=== PATIENT | female | born 1980 | race Caucasian/White ===

== ENCOUNTER 2016-12-18 23:22 | Emergency (ER) | payer MEDICARE, OTHER ==
[~2016-12-18] VITALS: Ht 165.1 cm; Wt 43.0 kg
[~2016-12-18 23:22] MED LIST: ALPR1 PO; BUPR2SUB SL; CLON.1 PO; CLON1TAB PO; GABA300C3 PO; ONDA4TAB7 PO; RANI150 PO; SERO200T PO; ZOFR4TAB3 SL
[2016-12-18 23:25] VITALS: BP 144/111; PULSE 98; RESP 15; TEMP 98.2; O2SAT 98
--- NOTE | 2016-12-18 23:50 | PD ---
HPI . Left hand injury Chief Complaint: Injury Time Seen by Provider: 23:42 Travel History International Travel<30 days: No Contact w/Intl Traveler<30days: No Traveled to known affect area: No History of Present Illness HPI Patient presents with a left hand injury. She struck a wall. Pain has been constant since that time. She rates it as 9/10. Pain is exacerbated by palpation. PFSH Past Medical History Asthma: Yes Autoimmune Disease: No Blood Disorders: No Bipolar Disorder: Yes Anxiety: Yes Depression: Yes Cancer: No Cardiovascular Problems: No COPD: No Cerebrovascular Accident: No Diabetes: Yes (gestational diabetic diet controlled) Diminished Hearing: No Endocrine: No Gastrointestinal Disorders: Yes Genitourinary: No Headaches: No Immune Disorder: No Musculoskeletal: Yes Neurologic: Yes Psychiatric: Yes (BIPOLAR/PARANOID SCHITZ) Reproductive: Yes () Respiratory: Yes Migraines: No Schizophrenia: Yes (PARANOID) Seizures: Yes (R/T DRUG WITHDRAWAL 2011) ?: Not LMP: LAST MONTH : 3 Para: 2 Miscarriage: 0 : 1 Past Surgical History Abdominal Surgery: No AICD: No Arteriovenous Shunt: No Cardiac Surgery: No Section: Yes (X2) Ear Surgery: No Endocrine Surgery: No Eye Surgery: No Genitourinary Surgery: No Gynecologic Surgery: Yes (CSECTION ) Insulin Pump: No Joint Replacement: No Oral Surgery: No Pacemaker: No Thoracic Surgery: No Other Surgery: Yes Social History Alcohol Use: Yes (long hx beer, liquor, yesterday) Tobacco Use: Yes (2.5 PPD) Substance Use: Yes (BENZOS, METHADONE, ALCOHOL) Allergies-Medications (Allergen,Severity, Reaction): Coded Allergies: Remeron Debora-Tab (Verified Allergy, Unknown, Hallucinations, 12/18/16) Haldol (Verified Adverse Reaction, Severe, TWITCHING/EYES ROLLING, 12/18/16 ) Reglan (Verified Adverse Reaction, Severe, TWITCHING/EYES ROLLING, 12/18/16 ) Risperdal (Verified Adverse Reaction, Severe, CONFUSION, 12/18/16) Reported Meds & Prescriptions Reported Meds & Active Scripts Active Active Prescriptions or Reported Medications Unobtainable Review of Systems ROS Limitations: Intoxication Except as stated in HPI: all other systems reviewed are Neg Musculoskeletal: Positive: Arthralgias Skin: Positive Change in Pigmentation Physical Exam Exam Limitations: Intoxication Narrative GENERAL: Awake and alert. Uncooperative for exam. SKIN: Warm and dry. Bruising between the left 4th and 5th MCP joints. HEAD: Atraumatic. Normocephalic. EYES: Pupils equal and round. NECK: Trachea midline. CARDIOVASCULAR: Regular rate and rhythm. RESPIRATORY: No accessory muscle use. MUSCULOSKELETAL: Tender between the left 4th and 5th MCP joints. NEUROLOGICAL: Awake and alert. No obvious cranial nerve deficits. Motor grossly within normal limits. Normal speech. PSYCHIATRIC: Appropriate mood and affect; insight and judgment normal. Data Data Last Documented VS Vital Signs Date Time Temp Pulse Resp B/P Pulse Ox O2 Delivery O2 Flow Rate FiO2 12/18/16 23:25 98.2 98 15 144/111 98 Room Air Orders Hand, Complete ([id number]) (12/18/16 23:42) [facility] Medical Decision Making Medical Screen Exam Complete: Yes Emergency Medical Condition: Yes Differential Diagnosis Differential diagnosis of extremity trauma includes but is not limited to fracture, sprain or strain, dislocation, contusion Narrative Course Patient presents with a left hand injury after punching a wall. She is intoxicated and making history and physical difficult. X-ray to my interpretation is negative for fracture or dislocation. Diagnosis Primary Impression: Contusion of left hand Qualified Code: S60.222A - Contusion of left hand, initial encounter Med/Other Pt SpecificInfo: Prescription(s) given Scripts Ibuprofen 800 Mg [id number] Mg PO Q8H PRN (Pain/Inflammation) #15 TAB Ref 0 Prov:Natalie Gonzales MD 12/19/16 Disposition: 01 DISCHARGE HOME Condition: Stable Natalie Gonzales MD December 18, 2016 23:50
[2016-12-19] MEDS ORDERED: IBUP800T23 PO (00:25)
--- NOTE | 2016-12-19 00:33 | RADRPT ---
EXAM DATE/TIME: 12/18/2016 23:56 [facility] COMPARISON: No previous studies available for comparison. INDICATIONS : Left hand pain after punching a wall. MEDICAL HISTORY : None. SURGICAL HISTORY : None. ENCOUNTER: Initial ACUITY: 1 day PAIN SCORE: 10/10 LOCATION: Left hand FINDINGS: Three view examination of the left hand demonstrates no acute dislocation or fracture. There soft ti ssue swelling over the dorsum of the hand. The carpal bones appear intact. The interphalangeal and m etacarpophalangeal joints are intact. Bony mineralization is normal. CONCLUSION: Soft tissue swelling with no acute fracture or malalignment. Rohit Pollard MD on December 19, 2016 at 0:32 Board Certified Radiologist. This report was verified electronically.
== END 2016-12-19 00:33 | disposition home or self-care (01) ==
LOC: NEPD 23:22
DX: S60.222A Contusion of left hand, initial encounter (principal); W22.01XA Walked into wall, initial encounter
CPT/HCPCS: 73130; 99283

== ENCOUNTER 2017-03-03 14:41 | Emergency (ER) | payer MEDICARE, OTHER ==
[~2017-03-03 14:41] MED LIST changes: -ALPR1 PO; -BUPR2SUB SL; -CLON.1 PO; -CLON1TAB PO; -GABA300C3 PO; +IBUP800T23 PO; -ONDA4TAB7 PO; -RANI150 PO; -SERO200T PO; -ZOFR4TAB3 SL
[2017-03-03 15:14] VITALS: BP 131/74; PULSE 92; RESP 18; TEMP 98.2; O2SAT 97
--- NOTE | 2017-03-03 15:36 | PD ---
HPI Chief Complaint: Psychiatric Symptoms Time Seen by Provider: 15:31 Travel History International Travel<30 days: No Contact w/Intl Traveler<30days: No Traveled to known affect area: No History of Present Illness HPI 36-year-old female brought in under [place] act by law enforcement. According to the paperwork patient made statements to police worker that she "no longer wanted to live". She does not have a specific plan. Patient reports to drinking heavily today although she can't quantify the amount of alcohol. She denies any illicit drug use. She reports her father recently and since then she's been having a difficult time handling agrees therefore has been drinking heavily. She denies headache, chest pain, abdominal pain, shortness of breath. PFSH Past Medical History Asthma: Yes Autoimmune Disease: No Blood Disorders: No Bipolar Disorder: Yes Anxiety: Yes Depression: Yes Cancer: No Cardiovascular Problems: No COPD: No Cerebrovascular Accident: No Diabetes: Yes (gestational diabetic diet controlled) Diminished Hearing: No Endocrine: No Gastrointestinal Disorders: Yes Genitourinary: No Headaches: No Immune Disorder: No Musculoskeletal: Yes Neurologic: Yes Psychiatric: Yes (BIPOLAR/PARANOID SCHITZ) Reproductive: Yes () Respiratory: Yes Migraines: No Schizophrenia: Yes (PARANOID) Seizures: Yes (R/T DRUG WITHDRAWAL 2011) : 3 Para: 2 Miscarriage: 0 : 1 Past Surgical History Abdominal Surgery: No AICD: No Arteriovenous Shunt: No Cardiac Surgery: No Section: Yes (X2) Ear Surgery: No Endocrine Surgery: No Eye Surgery: No Genitourinary Surgery: No Gynecologic Surgery: Yes (CSECTION ) Insulin Pump: No Joint Replacement: No Oral Surgery: No Pacemaker: No Thoracic Surgery: No Other Surgery: Yes Social History Alcohol Use: Yes (long hx beer, liquor, yesterday) Tobacco Use: Yes (2.5 PPD) Substance Use: Yes (BENZOS, METHADONE, ALCOHOL) Allergies-Medications (Allergen,Severity, Reaction): Coded Allergies: Remeron Debora-Tab (Verified Allergy, Unknown, Hallucinations, 12/18/16) Haldol (Verified Adverse Reaction, Severe, TWITCHING/EYES ROLLING, 12/18/16 ) Reglan (Verified Adverse Reaction, Severe, TWITCHING/EYES ROLLING, 12/18/16 ) Risperdal (Verified Adverse Reaction, Severe, CONFUSION, 12/18/16) Reported Meds & Prescriptions Reported Meds & Active Scripts Active Ibuprofen 800 Mg Tab 800 Mg PO Q8H PRN Review of Systems Except as stated in HPI: all other systems reviewed are Neg Physical Exam Narrative GENERAL: Alert, disheveled, intoxicated female. She smells of alcohol SKIN: Focused skin assessment warm/dry. HEAD: Normocephalic. Atraumatic EYES: No scleral icterus. No injection or drainage. Left periorbital ecchymosis. NECK: Supple, trachea midline. No JVD or lymphadenopathy. CARDIOVASCULAR: Regular rate and rhythm without murmurs, gallops, or rubs. RESPIRATORY: Breath sounds equal bilaterally. No accessory muscle use. GASTROINTESTINAL: Abdomen soft, non-tender, nondistended. MUSCULOSKELETAL: No cyanosis, or edema. BACK: Nontender without obvious deformity. No CVA tenderness. Data Data Last Documented VS Vital Signs Date Time Temp Pulse Resp B/P Pulse Ox O2 Delivery O2 Flow Rate FiO2 03/03/17 15:14 98.2 92 18 131/74 97 Orders Complete Blood Count With Diff (03/03/17 15:25) Comprehensive Metabolic Panel (03/03/17 15:25) Ed Urine Pregnancytest Poc (03/03/17 15:25) Psych Screen (03/03/17 15:25) Drug Screen, Random Urine (03/03/17 15:25) Alcohol (Ethanol) (03/03/17 15:25) Diphenhydramine Inj (Benadryl Inj) (03/03/17 16:15) Lorazepam Inj (Ativan Inj) (03/03/17 16:15) Ct Brain W/O Iv Contrast(Rout) (03/03/17 ) Ct Cerv Spine W/O Contrast (03/03/17 ) Restraints Violent (03/03/17 16:25) Labs Laboratory Tests Test 03/03/17 03/03/17 15:30 15:50 Urine Opiates Screen NEG Urine Barbiturates Screen NEG Urine Amphetamines Screen NEG Urine Benzodiazepines Screen POS Urine Cocaine Screen NEG Urine Cannabinoids Screen NEG White Blood Count 6.6 TH/MM3 Red Blood Count 3.70 MIL/MM3 Hemoglobin 12.6 GM/DL Hematocrit 35.8 % Mean Corpuscular Volume 96.7 FL Mean Corpuscular Hemoglobin 34.1 PG Mean Corpuscular Hemoglobin 35.3 % Concent Red Cell Distribution Width 16.3 % Platelet Count 229 TH/MM3 Mean Platelet Volume 7.4 FL Neutrophils (%) (Auto) 62.0 % Lymphocytes (%) (Auto) 30.5 % Monocytes (%) (Auto) 3.9 % Eosinophils (%) (Auto) 0.8 % Basophils (%) (Auto) 2.8 % Neutrophils # (Auto) 4.1 TH/MM3 Lymphocytes # (Auto) 2.0 TH/MM3 Monocytes # (Auto) 0.3 TH/MM3 Eosinophils # (Auto) 0.1 TH/MM3 Basophils # (Auto) 0.2 TH/MM3 CBC Comment DIFF FINAL Differential Comment Sodium Level 141 MEQ/L Potassium Level 3.7 MEQ/L Chloride Level 104 MEQ/L Carbon Dioxide Level 27.3 MEQ/L Anion Gap 10 MEQ/L Blood Urea Nitrogen 8 MG/DL Creatinine 0.72 MG/DL Estimat Glomerular Filtration 92 ML/MIN Rate Random Glucose 141 MG/DL Calcium Level 8.2 MG/DL Total Bilirubin 0.2 MG/DL Aspartate Amino Transf 21 U/L (AST/SGOT) Alanine Aminotransferase 21 U/L (ALT/SGPT) Alkaline Phosphatase 86 U/L Total Protein 8.6 GM/DL Albumin 4.3 GM/DL Ethyl Alcohol Level 305 MG/DL MDM Medical Decision Making Medical Screen Exam Complete: Yes Emergency Medical Condition: Yes Differential Diagnosis Suicidal ideation, alcohol intoxication, polysubstance abuse, substance-induced mood disorder Narrative Course 36-year-old female brought in under [employer] act for expressing suicidal ideation. Patient reports to drinking a large amount of alcohol this morning. She appears intoxicated and smells of alcohol. Lab work and tox screen ordered and pending. Once patient is medically cleared she will receive psychiatric evaluation. CBC unremarkable BMP unremarkable Toxicology positive for benzos, alcohol 305 Diagnosis Primary Impression: Suicidal ideation Additional Impression: Alcohol intoxication Qualified Code: F10.920 - Alcohol intoxication, uncomplicated ChantellJoanne Betancourt [facility] Mar 03, 2017 15:36
[2017-03-03 16:15] LABS: AUTOMATED NEUTROPHIL # 4.1 TH/MM3 (1.8-7.7); BASOPHIL # 0.2 TH/MM3 (0-0.2); BASOPHIL % 2.8 % (0.0-2.0); EOSINOPHIL # 0.1 TH/MM3 (0-0.4); EOSINOPHIL % 0.8 % (0.0-4.0); HEMATOCRIT 35.8 % (35.0-46.0); HEMO FLAGS DIFF FINAL; LYMPH % 30.5 % (9.0-44.0); MEAN CELL VOLUME 96.7 FL (80.0-100.0); MEAN CORPUSCULAR HEMOGLOBIN 34.1 PG (27.0-34.0); MEAN CORPUSCULAR HGB CONC 35.3 % (32.0-36.0); MONO % 3.9 % (0.0-8.0); PLATELET COUNT 229 TH/MM3 (150-450); RED CELL DISTRIBUTION WIDTH 16.3 % (11.6-17.2); WHITE BLOOD COUNT 6.6 TH/MM3 (4.0-11.0)
[2017-03-03] MEDS ORDERED: diphenhydrAMINE HCL 50 MG/ML VIAL IM ONE (16:15)
[2017-03-03] MEDS ORDERED: LORazepam 2 MG/ML VIAL IM ONE (16:15)
[2017-03-03 16:31] LABS: AMPHETAMINE, URINE NEG (NEG); BARBITURATES, URINE NEG (NEG); COCAINE, URINE NEG (NEG)
[2017-03-03 16:39] LABS: ALT (GPT) 21 U/L (10-53); ANION GAP 10 MEQ/L (5-15); AST (GOT) 21 U/L (15-37); BICARBONATE 27.3 MEQ/L (21.0-32.0); BLOOD UREA NITROGEN 8 MG/DL (7-18); CHLORIDE 104 MEQ/L (98-107); GLOMERULAR FILTRATION RATE 92 ML/MIN (>89); POTASSIUM 3.7 MEQ/L (3.5-5.1); SODIUM (NA) 141 MEQ/L (136-145)
[2017-03-03 16:42] LABS: ALKALINE PHOSPHATASE 86 U/L (45-117); TOTAL BILIRUBIN ADULT 0.2 MG/DL (0.2-1.0)
--- NOTE | 2017-03-03 16:47 | PD ---
HPI Chief Complaint: Psychiatric Symptoms Time Seen by Provider: 15:44 Travel History International Travel<30 days: No Contact w/Intl Traveler<30days: No Traveled to known affect area: No PFSH Past Medical History Asthma: Yes Autoimmune Disease: No Blood Disorders: No Bipolar Disorder: Yes Anxiety: Yes Depression: Yes Cancer: No Cardiovascular Problems: No COPD: No Cerebrovascular Accident: No Diabetes: No (gestational diabetic diet controlled) Patient Takes Glucophage: No Diminished Hearing: No Endocrine: No Gastrointestinal Disorders: Yes Genitourinary: No Headaches: No Immune Disorder: No Musculoskeletal: Yes Neurologic: Yes Psychiatric: Yes (BIPOLAR/PARANOID SCHITZ) Reproductive: Yes () Respiratory: Yes Migraines: No Schizophrenia: Yes (PARANOID) Seizures: Yes (R/T DRUG WITHDRAWAL 2011) ?: Unknown : 3 Para: 2 Miscarriage: 0 : 1 Past Surgical History Abdominal Surgery: No AICD: No Arteriovenous Shunt: No Cardiac Surgery: No Section: Yes (X2) Ear Surgery: No Endocrine Surgery: No Eye Surgery: No Genitourinary Surgery: No Gynecologic Surgery: Yes (CSECTION ) Insulin Pump: No Joint Replacement: No Neurologic Surgery: No Oral Surgery: No Pacemaker: No Thoracic Surgery: No Other Surgery: Yes Social History Alcohol Use: Yes (long hx beer, liquor, yesterday) Tobacco Use: Yes (2.5 PPD) Substance Use: Yes (BENZOS, METHADONE, ALCOHOL) Allergies-Medications (Allergen,Severity, Reaction): Coded Allergies: Remeron Debora-Tab (Verified Allergy, Unknown, Hallucinations, 12/18/16) Haldol (Verified Adverse Reaction, Severe, TWITCHING/EYES ROLLING, 12/18/16 ) Reglan (Verified Adverse Reaction, Severe, TWITCHING/EYES ROLLING, 12/18/16 ) Risperdal (Verified Adverse Reaction, Severe, CONFUSION, 12/18/16) Reported Meds & Prescriptions Reported Meds & Active Scripts Active Ibuprofen 800 Mg Tab 800 Mg PO Q8H PRN Data Data Last Documented VS Vital Signs Date Time Temp Pulse Resp B/P Pulse Ox O2 Delivery O2 Flow Rate FiO2 03/03/17 15:14 98.2 92 18 131/74 97 Orders Complete Blood Count With Diff (03/03/17 15:25) Comprehensive Metabolic Panel (03/03/17 15:25) Ed Urine Pregnancytest Poc (03/03/17 15:25) Drug Screen, Random Urine (03/03/17 15:25) Alcohol (Ethanol) (03/03/17 15:25) Diphenhydramine Inj (Benadryl Inj) (03/03/17 16:15) Lorazepam Inj (Ativan Inj) (03/03/17 16:15) Ct Brain W/O Iv Contrast(Rout) (03/03/17 ) Ct Cerv Spine W/O Contrast (03/03/17 ) Restraints Violent (03/03/17 16:25) Lorazepam (Ativan) (03/04/17 02:00) Labs Laboratory Tests Test 03/03/17 03/03/17 15:30 15:50 Urine Opiates Screen NEG Urine Barbiturates Screen NEG Urine Amphetamines Screen NEG Urine Benzodiazepines Screen POS Urine Cocaine Screen NEG Urine Cannabinoids Screen NEG White Blood Count 6.6 TH/MM3 Red Blood Count 3.70 MIL/MM3 Hemoglobin 12.6 GM/DL Hematocrit 35.8 % Mean Corpuscular Volume 96.7 FL Mean Corpuscular Hemoglobin 34.1 PG Mean Corpuscular Hemoglobin 35.3 % Concent Red Cell Distribution Width 16.3 % Platelet Count 229 TH/MM3 Mean Platelet Volume 7.4 FL Neutrophils (%) (Auto) 62.0 % Lymphocytes (%) (Auto) 30.5 % Monocytes (%) (Auto) 3.9 % Eosinophils (%) (Auto) 0.8 % Basophils (%) (Auto) 2.8 % Neutrophils # (Auto) 4.1 TH/MM3 Lymphocytes # (Auto) 2.0 TH/MM3 Monocytes # (Auto) 0.3 TH/MM3 Eosinophils # (Auto) 0.1 TH/MM3 Basophils # (Auto) 0.2 TH/MM3 CBC Comment DIFF FINAL Differential Comment Sodium Level 141 MEQ/L Potassium Level 3.7 MEQ/L Chloride Level 104 MEQ/L Carbon Dioxide Level 27.3 MEQ/L Anion Gap 10 MEQ/L Blood Urea Nitrogen 8 MG/DL Creatinine 0.72 MG/DL Estimat Glomerular Filtration 92 ML/MIN Rate Random Glucose 141 MG/DL Calcium Level 8.2 MG/DL Total Bilirubin 0.2 MG/DL Aspartate Amino Transf 21 U/L (AST/SGOT) Alanine Aminotransferase 21 U/L (ALT/SGPT) Alkaline Phosphatase 86 U/L Total Protein 8.6 GM/DL Albumin 4.3 GM/DL Ethyl Alcohol Level 305 MG/DL MDM Diagnosis Primary Impression: Suicidal ideation Additional Impression: Alcohol intoxication Brian Irwin MD Mar 03, 2017 16:47
--- NOTE | 2017-03-03 17:37 | RADRPT ---
EXAM DATE/TIME: 03/03/2017 17:24 [facility] COMPARISON: No previous studies available for comparison. INDICATIONS : Trauma. Fall. RADIATION DOSE: 32.52 CTDIvol (mGy) MEDICAL HISTORY : None SURGICAL HISTORY : None. ENCOUNTER: Initial ACUITY: 1 day PAIN SCALE: 5/10 LOCATION: cranial TECHNIQUE: Multiple contiguous axial images were obtained of the head. Using automated exposure control and adj ustment of the mA and/or kV according to patient size, radiation dose was kept as low as reasonably a chievable to obtain optimal diagnostic quality images. DICOM format image data is available electro nically for review and comparison. FINDINGS: CEREBRUM: The ventricles are normal. No evidence of midline shift, mass lesion, hemorrhage or acute infarction . No extra-axial fluid collections are seen. POSTERIOR FOSSA: The cerebellum and brainstem demonstrate no abnormality. The 4th ventricle is midline. The cerebell opontine angle is unremarkable. EXTRACRANIAL: Visualized sinuses are clear. SKULL: The calvaria is intact. No evidence of skull fracture. CONCLUSION: No acute intracranial abnormality is identified. Jerry Hadley MD on March 03, 2017 at 17:34 Board Certified Radiologist. This report was verified electronically.
--- NOTE | 2017-03-03 17:41 | RADRPT ---
EXAM DATE/TIME: 03/03/2017 17:24 [facility] COMPARISON: No previous studies available for comparison. INDICATIONS : Trauma. Fall. RADIATION DOSE: 12.22 CTDIvol (mGy) MEDICAL HISTORY : None SURGICAL HISTORY : None. ENCOUNTER: Initial ACUITY: 1 day PAIN SCALE: 5/10 LOCATION: neck TECHNIQUE: Volumetric scanning of the cervical spine was performed. Multiplanar reconstructions i n the sagittal, coronal and oblique axial planes were performed. Using automated exposure control a nd adjustment of the mA and/or kV according to patient size, radiation dose was kept as low as reason ably achievable to obtain optimal diagnostic quality images. DICOM format image data is available e lectronically for review and comparison. FINDINGS: No significant subluxation or soft tissue swelling is seen. No definite fracture is seen for techniqu e. C2-C3: No appreciable compromised to the thecal sac, exiting nerve roots are seen. The neural makayla violet are patent bilaterally. No appreciable thecal sac stenosis is seen. C3-C4: No appreciable compromised to the thecal sac, exiting nerve roots are seen. The neural makayla violet are patent bilaterally. No appreciable thecal sac stenosis is seen. C4-C5: No appreciable compromised to the thecal sac, exiting nerve roots are seen. The neural makayla violet are patent bilaterally. No appreciable thecal sac stenosis is seen. C5-C6: No appreciable compromised to the thecal sac, exiting nerve roots are seen. The neural makayla violet are patent bilaterally. No appreciable thecal sac stenosis is seen. C6-C7: No appreciable compromised to the thecal sac, exiting nerve roots are seen. The neural makayla violet are patent bilaterally. No appreciable thecal sac stenosis is seen. C7-T1: No appreciable compromised to the thecal sac, exiting nerve roots are seen. The neural makayla violet are patent bilaterally. No appreciable thecal sac stenosis is seen CONCLUSION: Unremarkable study. Miguelina Chin MD on March 03, 2017 at 17:37 Board Certified Radiologist. This report was verified electronically.
[2017-03-04] MEDS ORDERED: LORazepam 2 MG TAB PO ONE (02:00)
--- NOTE | 2017-03-06 18:45 | PD ---
Data Data Last Documented VS Vital Signs Date Time Temp Pulse Resp B/P Pulse Ox O2 Delivery O2 Flow Rate FiO2 03/03/17 15:14 98.2 92 18 131/74 97 Orders Complete Blood Count With Diff (03/03/17 15:25) Comprehensive Metabolic Panel (03/03/17 15:25) Ed Urine Pregnancytest Poc (03/03/17 15:25) Drug Screen, Random Urine (03/03/17 15:25) Alcohol (Ethanol) (03/03/17 15:25) Diphenhydramine Inj (Benadryl Inj) (03/03/17 16:15) Lorazepam Inj (Ativan Inj) (03/03/17 16:15) Ct Brain W/O Iv Contrast(Rout) (03/03/17 ) Ct Cerv Spine W/O Contrast (03/03/17 ) Restraints Violent (03/03/17 16:25) Lorazepam (Ativan) (03/04/17 02:00) Labs Laboratory Tests Test 03/03/17 03/03/17 15:30 15:50 Urine Opiates Screen NEG Urine Barbiturates Screen NEG Urine Amphetamines Screen NEG Urine Benzodiazepines Screen POS Urine Cocaine Screen NEG Urine Cannabinoids Screen NEG White Blood Count 6.6 TH/MM3 Red Blood Count 3.70 MIL/MM3 Hemoglobin 12.6 GM/DL Hematocrit 35.8 % Mean Corpuscular Volume 96.7 FL Mean Corpuscular Hemoglobin 34.1 PG Mean Corpuscular Hemoglobin 35.3 % Concent Red Cell Distribution Width 16.3 % Platelet Count 229 TH/MM3 Mean Platelet Volume 7.4 FL Neutrophils (%) (Auto) 62.0 % Lymphocytes (%) (Auto) 30.5 % Monocytes (%) (Auto) 3.9 % Eosinophils (%) (Auto) 0.8 % Basophils (%) (Auto) 2.8 % Neutrophils # (Auto) 4.1 TH/MM3 Lymphocytes # (Auto) 2.0 TH/MM3 Monocytes # (Auto) 0.3 TH/MM3 Eosinophils # (Auto) 0.1 TH/MM3 Basophils # (Auto) 0.2 TH/MM3 CBC Comment DIFF FINAL Differential Comment Sodium Level 141 MEQ/L Potassium Level 3.7 MEQ/L Chloride Level 104 MEQ/L Carbon Dioxide Level 27.3 MEQ/L Anion Gap 10 MEQ/L Blood Urea Nitrogen 8 MG/DL Creatinine 0.72 MG/DL Estimat Glomerular Filtration 92 ML/MIN Rate Random Glucose 141 MG/DL Calcium Level 8.2 MG/DL Total Bilirubin 0.2 MG/DL Aspartate Amino Transf 21 U/L (AST/SGOT) Alanine Aminotransferase 21 U/L (ALT/SGPT) Alkaline Phosphatase 86 U/L Total Protein 8.6 GM/DL Albumin 4.3 GM/DL Ethyl Alcohol Level 305 MG/DL MDM Supervised Visit with SAGAR: Yes Narrative Course I, Dr. Irwin, have reviewed the advance practice practitioner's documentation and am in agreement, met with the patient face to face, made the diagnosis, and the medical decision making was done by me. *My assessment and Findings: Patient 36-year-old female presents emergency department intoxicated and belligerent. Initially easily redirectable she was standing up and threatening to throw things at staff members. For this reason she was placed in 4 point restraints and chemically sedated. She remains such as to such time as she is redirectable. I have observed staff members restrain the patient was done so in as humane a fashion as possible. Agree with SAGAR documentation. Diagnosis Primary Impression: Suicidal ideation Additional Impression: Alcohol intoxication Qualified Code: F10.920 - Alcohol intoxication, uncomplicated Patient Instructions: General Instructions Departure Forms: Tests/Procedures Brian Irwin MD Mar 06, 2017 18:45
== END 2017-03-04 06:41 | disposition home or self-care (01) ==
LOC: NEDAMB 14:41 → NEPD 03-04 06:41
DX: F41.8 Other specified anxiety disorders (principal); F20.0 Paranoid schizophrenia; Y90.8 Blood alcohol level of 240 mg/100 ml or more; F10.929 Alcohol use, unspecified with intoxication, unspecified; F17.210 Nicotine dependence, cigarettes, uncomplicated; F11.90 Opioid use, unspecified, uncomplicated
CPT/HCPCS: 70450; 72125; 80053; 80307; 84703; 85025; 96372; 99285; J1200; J2060

== ENCOUNTER 2017-03-19 22:56 | Emergency (ER) | payer MEDICARE, OTHER ==
[2017-03-19 23:07] VITALS: BP 114/73; PULSE 88; RESP 18; TEMP 98.3; O2SAT 96
--- NOTE | 2017-03-20 00:47 | PD ---
HPI Chief Complaint: Alcohol/Drug Intoxication Time Seen by Provider: 23:10 Travel History International Travel<30 days: No Contact w/Intl Traveler<30days: No Traveled to known affect area: No History of Present Illness HPI 36-year-old female arrives as a Chau's act. She drank alcohol today. Patient was found threatening others or drinking alcohol according to please records. Patient is known to abuse alcohol according to police records and evidently reported to the policeman she wanted to drink herself to . History somewhat limited in the ER due to intoxication. PFSH Past Medical History Asthma: Yes Autoimmune Disease: No Blood Disorders: No Bipolar Disorder: Yes Anxiety: Yes Depression: Yes Cancer: No Cardiovascular Problems: No COPD: No Cerebrovascular Accident: No Diminished Hearing: No Endocrine: No Gastrointestinal Disorders: Yes Genitourinary: No Headaches: No Immune Disorder: No Musculoskeletal: Yes Neurologic: Yes Psychiatric: Yes (BIPOLAR/PARANOID SCHITZ) Reproductive: Yes () Respiratory: Yes Migraines: No Schizophrenia: Yes (PARANOID) Seizures: Yes (R/T DRUG WITHDRAWAL 2011) ?: Unknown : 3 Para: 2 Miscarriage: 0 : 1 Past Surgical History Abdominal Surgery: No AICD: No Arteriovenous Shunt: No Cardiac Surgery: No Section: Yes (X2) Ear Surgery: No Endocrine Surgery: No Eye Surgery: No Genitourinary Surgery: No Gynecologic Surgery: Yes (CSECTION ) Insulin Pump: No Joint Replacement: No Neurologic Surgery: No Oral Surgery: No Pacemaker: No Thoracic Surgery: No Other Surgery: Yes Social History Alcohol Use: Yes (long hx beer, liquor) Tobacco Use: Yes (2.5 PPD) Substance Use: Yes (BENZOS, METHADONE, ALCOHOL) Allergies-Medications (Allergen,Severity, Reaction): Coded Allergies: mirtazapine (Unverified Allergy, Unknown, Hallucinations, 03/19/17) haloperidol (Unverified Adverse Reaction, Severe, TWITCHING/EYES ROLLING, 03/19/17) metoclopramide (Unverified Adverse Reaction, Severe, TWITCHING/EYES ROLLING, 03/19/17) risperidone (Unverified Adverse Reaction, Severe, CONFUSION, 03/19/17) Reported Meds & Prescriptions Reported Meds & Active Scripts Active No Active Prescriptions or Reported Medications Review of Systems ROS Limitations: Clinical Condition, Intoxication Physical Exam Narrative GENERAL: 36 yo F, asleep on her bed, awakes to voice to curse at providers/staff SKIN: Warm and dry. HEAD: Atraumatic. Normocephalic. EYES: Pupils equal and round. No scleral icterus. No injection or drainage. ENT: No nasal bleeding or discharge. Mucous membranes pink and moist. NECK: Trachea midline. No JVD. CARDIOVASCULAR: Deferred secondary to agitation and intoxication RESPIRATORY: No accessory muscle use. Clear to auscultation. Breath sounds equal bilaterally. GASTROINTESTINAL: Deferred secondary to agitation and intoxication. MUSCULOSKELETAL: Extremities without clubbing, cyanosis, or edema. No obvious deformities. NEUROLOGICAL: Agitated. Moving all extremities normally. PSYCHIATRIC: EtOH on breath. Agitated. Data Data Last Documented VS Vital Signs Date Time Temp Pulse Resp B/P Pulse Ox O2 Delivery O2 Flow Rate FiO2 03/19/17 23:15 18 03/19/17 23:07 98.3 88 114/73 96 Vital signs reviewed MDM Medical Decision Making Medical Screen Exam Complete: Yes Emergency Medical Condition: Yes Medical Record Reviewed: Yes Differential Diagnosis Alcohol intoxication, polysubstance abuse, alcoholism Narrative Course Patient will be observed here until she is clinically sober, ambulatory with a normal gait, a and O 3 and able to call a friend or family member to pick her up. Diagnosis Primary Impression: Alcohol intoxication Qualified Code: F10.920 - Alcoholic intoxication without complication Referrals: [facility] day Additional Instructions: You have a choice when it comes to health care, and we are glad that you chose [facility]. Hopefully, we have met your expectations on today's visit. You are welcome to return to [facility] at any time, as we are committed to meeting the health care needs of our community. Med/Other Pt SpecificInfo: No Change to Meds Scripts No Active Prescriptions or Reported Meds Disposition: DISCHARGE HOME Condition: Stable Prem Pathak MD Mar 20, 2017 00:47
== END 2017-03-20 06:44 | disposition home or self-care (01) ==
LOC: NEPD 22:56
DX: F10.120 Alcohol abuse with intoxication, uncomplicated (principal); F17.210 Nicotine dependence, cigarettes, uncomplicated
CPT/HCPCS: 99283